=== PATIENT | male | born 1955 | race Asian ===

== ENCOUNTER 2023-04-13 11:08 | Outpatient (REF) | payer OTHER, SELFPAY ==
[2023-04-13 15:23] LABS: Calcium 8.9 mg/dL (8.4-10.2)
== END 2023-04-13 11:09 | disposition home or self-care (01) ==
LOC: HO.CHCLDS 11:08
PROVIDERS: Visit Provider Internal Medicine
DX: E83.51 Hypocalcemia (principal)
CPT/HCPCS: 36415; 82310

== ENCOUNTER 2024-02-23 15:36 | Outpatient (REF) | payer OTHER, SELFPAY ==
[2024-02-23 18:58] LABS: PSA,Total (Free>4and<10) 1.27 ng/mL (0.00-4.00)
[2024-02-23 19:06] LABS: TSH reflex Free T4 0.77 uIU/mL (0.32-4.0); Vitamin D 25-OH Total 13.9 ng/mL (>30)
[2024-02-24 08:54] LABS: HIV AB/AG Nonreactive (Nonreactive); HIV Num 1 0.06 S/CO (0.00-0.99); ~HepC Num1 0.21 S/CO (0.00-0.79); ~Hepatitis C Antibody Nonreactive (Nonreactive)
== END 2024-02-23 15:37 | disposition home or self-care (01) ==
LOC: HO.CHCLDS 15:36
PROVIDERS: Visit Provider Internal Medicine
DX: Z00.00 Encounter for general adult medical examination without abnormal findings (principal); Z12.5 Encounter for screening for malignant neoplasm of prostate; Z11.4 Encounter for screening for human immunodeficiency virus [HIV]; Z12.11 Encounter for screening for malignant neoplasm of colon; R63.4 Abnormal weight loss
CPT/HCPCS: 36415; 82306; 84153; 84443; 86803; 87389

== ENCOUNTER 2024-04-11 11:54 | Outpatient (REF) | payer OTHER, SELFPAY ==
[2024-04-11 15:23] LABS: Folate 10.7 ng/mL (> or = 4.0); Vitamin B12 469 pg/mL (200-900)
== END 2024-04-11 11:55 | disposition home or self-care (01) ==
LOC: HO.CHCLDS 11:54
PROVIDERS: Visit Provider Internal Medicine
DX: R41.3 Other amnesia (principal)
CPT/HCPCS: 36415; 82607; 82746

== ENCOUNTER 2024-06-13 08:01 | Outpatient (REF) | payer OTHER, SELFPAY ==
--- NOTE | 2024-06-13 08:05 | EEG_ITS ---
FINDINGS: Waking background activity consists of a moderate voltage 10 to 12 hertz posterior well-defined alpha frequency intermixed anteriorly with low voltage fast frequencies. Photic stimulation is without activation. Hyperventilation was omitted. Drowsiness was characterized by diffuse theta slowing. No sleep stages are identified. No focal, lateralizing, or paroxysmal discharges are seen. IMPRESSION: This waking EEG is within normal limits. MD NOEL Mccoy/TATIANA / [phone]
== END 2024-06-13 08:02 | disposition home or self-care (01) ==
LOC: HO.NEURO 08:01
PROVIDERS: PCP Internal Medicine; Visit Provider Internal Medicine
DX: R41.3 Other amnesia (principal)
CPT/HCPCS: 95816

== ENCOUNTER 2024-08-11 14:29 | Outpatient (REF) | payer OTHER, SELFPAY ==
[2024-08-11 17:45] LABS: MANUAL DIFF FLAG NO
[2024-08-11 17:58] LABS: Basophils Absolute Auto 0.1 X10*3/uL (0.0-0.2); Basophils Percent Auto 0.8 % (0-2); Eosinophils Absolute Auto 0.2 X10*3/uL (0.0-0.4); Eosinophils Percent Auto 2.5 % (0-4); Hematocrit 45.1 % (42.0-52.0); Imm Gran Abs Auto 0.03 X10*3/uL (0.00-0.03); Imm Gran Pct Auto 0.5 % (0.0-0.4); Lymphocytes Absolute Auto 1.6 X10*3/uL (1.2-4.9); Lymphocytes Percent Auto 26.7 % (20-40); Mean Corpuscular HGB Conc 33.3 g/dl (31.0-36.0); Mean Corpuscular Hemoglobin 29.6 pg (27.0-33.0); Mean Platelet Volume 7.9 fL (9.4-12.4); Monocytes Absolute Auto 0.5 X10*3/uL (0.1-1.2); Monocytes Percent Auto 7.6 % (2-11); Neutrophils Absolute Auto 3.7 x10*3/uL (2.0-8.3); Neutrophils Percent Auto 61.9 % (45-73); Platelet Count 268 X10*3/uL (160-400); Red Blood Count 5.07 X10*6/uL (4.60-5.80); Red Cell Distribution Width 12.1 % (11.0-16.0)
[2024-08-11 18:41] LABS: Folate 13.8 ng/mL (> or = 4.0); Vitamin B12 511 pg/mL (200-900)
[2024-08-11 18:54] LABS: Alanine Aminotransferase 18 U/L (0-40); Albumin Level 4.2 g/dL (3.5-5.0); Alkaline Phosphatase 45 U/L (39-117); Anion Gap 12 (12-20); Aspartate Amino Transferase 24 U/L (5-37); Bilirubin Total 0.5 mg/dL (0.0-1.0); Blood Urea Nitrogen 18 mg/dL (9-16); Calcium 8.6 mg/dL (8.4-10.2); Carbon Dioxide 28 mmol/L (22-29); Chloride 103 mmol/L (96-108); Cholesterol 195 mg/dL (<200); Estimated Glomerular Filt Rate > 60; Glucose Random 95 mg/dL (60-115); HDL Cholesterol 74 mg/dL (>40); LDL Cholesterol Calculated 107 mg/dL (<100); Sodium 139 mmol/L (135-145); Total Protein 7.3 g/dL (6.5-8.0); Triglycerides 71 mg/dL (<150)
[2024-08-11 19:02] LABS: TSH reflex Free T4 0.85 uIU/mL (0.32-4.0)
[2024-08-12 07:52] LABS: Syphilis Screen Nonreactive (Nonreactive)
[2024-08-12 08:26] LABS: HIV AB/AG Nonreactive (Nonreactive); HIV Num 1 0.07 S/CO (0.00-0.99)
[2024-08-12 10:32] LABS: Ceruloplasmin 18 mg/dL (14-30)
[2024-08-12 13:03] LABS: Lyme Abs Screen <0.90 index
== END 2024-08-11 14:30 | disposition home or self-care (01) ==
LOC: HO.CHCLDS 14:29
PROVIDERS: Visit Provider Family Medicine
DX: R25.9 Unspecified abnormal involuntary movements (principal); R41.3 Other amnesia
CPT/HCPCS: 36415; 80053; 80061; 82390; 82607; 82746; 84443; 85025; 86617; 86618; 86780; 87389

== ENCOUNTER 2024-08-18 09:36 | Outpatient (REF) | payer OTHER, SELFPAY ==
[2024-08-18] MEDS: gadobutroL 7.5 ML VIAL IVPUSH (10:45)
== END 2024-08-18 09:37 | disposition home or self-care (01) ==
LOC: HO.MRI 09:36
PROVIDERS: PCP Internal Medicine; Visit Provider Family Medicine
DX: R25.9 Unspecified abnormal involuntary movements (principal)
CPT/HCPCS: 70553; A9585

== ENCOUNTER 2025-05-05 11:30 | Outpatient (REF) | payer MEDICARE, SELFPAY ==
--- OUTSIDE RECORDS SUMMARY | 2025-05-05 11:34 | XMS_ITS | Clinical Summary ---
Author Organization [employer] Address [address] [place] [address] Care Team Providers Care Spring Assembler Name Role Phone Beronica Morales MD Primary Care Provider [phone] Allergies No known active allergies Medications triamcinolone (Kenalog) 0.1 % ointmentIndicatio ns:History of nummular eczema Apply topically 2 times daily. 30 g 3 Active ergocalciferol (Vitamin D2) 1.25 MG (01904 UT) capsuleIndication s:Low vitamin D level Take 1 capsule (1.25 mg) by mouth 1 (one) time per week. 12 capsule 4 Active Nutritional Supplements (Ensure Active High Protein) liquidIndications :Weight loss 1 can 2 times a day. Weight loss. Low BMI. 237 mL 11 4 Active amLODIPine (Norvasc) 5 MG tabletIndications :Primary hypertension Take 1 tablet (5 mg) by mouth Once per day. 90 tablet 3 4 Active Active Problems Problem Noted Date Diagnosed Date Unspecified abnormal involuntary movements 07/14 Assessment & Plan (07/14/2024 11:44 PM EDT): Patient w/o any specific neurological symptoms on gross examination. Persistent symptoms, EEG w/o signs of seizures, will send labs and imaging. Will refer to neurology. Recommended f.up with PCP. Future Appointments Date Time Provider Department Center 08/18/2024 11:15 AM Beronica Morales MD [facility] Hypertensive disorder 12/23/2021 Strain of left biceps 03/11/2018 Resolved Problems Problem Noted Date Diagnosed Date Resolved Date Blood in urine 07/08/2017 07/14/2024 Encounters Date Type Department Care Team Description 04/27/2025 1:15 PM EDT Office Visit [facility] [address] [place] [address] Beronica Morales MD Primary hypertension (Primary Dx); Annual physical exam; LOC (loss of consciousness) (CMS/HCC); Abnormal EKG 04/27/2025 Travel 04/26/2025 Telephone [facility] [address] [place] [address] Beronica Morales MD Chart Prep from Last 3 Months Immunizations Immunization Administration Dates Next Due Pfizer Covid-19 Vaccine 12+ 02/23/2024 Pneumococcal Conjugate PCV 20 02/23/2024 Tdap 12/24/2015 Family History Medical History Relation Name Comments Diabetes Father Hypertension Father Diabetes Mother Relation Name Status Comments Father Mother Social History Tobacco Use Types Packs/Day Years Used Date Smoking Tobacco: Never Passive Smoke Exposure: Never Smokeless Tobacco: Never Tobacco Cessation:Counseling Given: Not Answered Depression Answer Date Recorded Patient Health Questionnaire-9 Score 0 04/27/2025 Patient Health Questionnaire-9 Score 0 04/27/2025 Last PHQ-9: Questionnaire Data Not on file 0 04/27/2025 Housing Stability Answer Date Recorded What is your housing situation today? I have josie leiva 04/27/[address] you li ve. Do you have problems with any of the following? None of the above 04/27/2025 Food Insecurity Answer Date Recorded Within the past 12 months, y ou worried that your food would run out before you got money to buy more: Never True 04/27/2025 Within the past 12 months,th e food you bought just didn't last and you didn't have enough money to get more: Never True Transportation Answer Date Recorded In the past 12 months, has l ack of transportation kept you from medical appts, meetings, work or from getting things needed for daily living? No 04/27/2025 Utilities Answer Date Recorded In the past 12 months, has t he electric, gas, oil or water company threatened to shut off services in your home? No 04/27/2025 Depression Answer Date Recorded Patient Health Questionnaire-2 Score 0 04/27/2025 Internet Access Answer Date Recorded Internet Access Q1 Yes 04/27/2025 Internet Access Q2 Not on file 04/27/2025 Sex and Gender Information Value Date Recorded Sex Assigned at Male 07/28/2022 10:21 AM EDT Legal Sex Male 10:21 AM EDT Gender Identity Male 07/28/2022 10:21 AM EDT Sexual Orientation Straight 07/28/2022 10 :21 AM EDT Last Filed Vital Signs Vital Sign Reading Time Taken Comments Blood Pressure 123/74 04/27/2025 1:49 PM EDT Pulse 102 04/27/2025 1:49 PM EDT Temperature 36.6 C (97.8 F) 04/27/2025 1:49 PM EDT Respiratory Rate 20 04/27/2025 1:49 PM EDT Oxygen Saturation 97% 04/27/2025 1:49 PM EDT Inhaled Oxygen Concentration - - Weight 54.9 kg (121 lb) 04/27/2025 1:49 PM EDT Height 162.6 cm (5' 4 ) 04/27/2025 1:49 PM EDT Body Mass Index 20.77 04/27/2025 1:49 PM EDT Plan of Treatment Health Maintenance Due Date Last Done Comments CT Colonography 1957 Colonoscopy 1957 FIT 1957 FOBT 1957 Sigmoidoscopy 1957 Zoster Vaccines (1 of 2) 2007 COVID-19 Vaccine (2 - 2023-2 5 season) 2024 02/23/2024 Influenza Vaccine (#1) 2025 DTaP/Tdap/Td Vaccines (2 - T d or Tdap) 12/23/2025 12/24/2015 Alcohol/Substance Use Screening 04/27/2026 04/27/2025 Depression Screening 04/27/2026 04/27/2025, 04/27/2025 SDOH Screening 04/27/2026 04/27/2025 Tobacco Screening 04/27/2026 04/27/2025 Colorectal Cancer Screening 03/15/2027 FIT DNA/Cologuard 03/15/2027 03/15/2024 Lipid Panel 08/11/2029 08/11/2024, 12/31/2022, 09/30/2021 RSV Patients and Patients Aged 60 years or older (1 - 1-dose 75+ series) 2032 Hepatitis C Screening Completed 02/23/2024 Pneumococcal Vaccine: 50+ Years Completed 02/23/2024 HIB Vaccines Aged Out No longer eligi ble based on patient's age to complete this topic HPV Vaccines Aged Out No longer eligi ble based on patient's age to complete this topic Hepatitis A Vaccines Aged Out No long er eligible based on patient's age to complete this topic Hepatitis B Vaccines Aged Out No long er eligible based on patient's age to complete this topic IPV Vaccines Aged Out No longer eligi ble based on patient's age to complete this topic Meningococcal B Vaccine Aged Out No l onger eligible based on patient's age to complete this topic Meningococcal Vaccine Aged Out No chelsi brady eligible based on patient's age to complete this topic RSV under 20 months Aged Out No longe r eligible based on patient's age to complete this topic Rotavirus Vaccines Aged Out No longer eligible based on patient's age to complete this topic Procedures Procedure Name Priority Date/Time Associated Diagnosis Comments ECG 12-LEAD Routine 04/27/2025 3:06 PM EDT LOC (loss of consciousness) (CMS/HCC) LIPID PANEL, STANDARD Routine 08/11/2024 2:31 PM EST Unspecified abnormal involuntary movements LAB COLOGUARD COLON CANCER SCREEN Routine 03/15/2024 11:20 AM EDT Screening for colon cancer HEPATITIS C AB W/REFL TO HCV RNA, QN, PCR Routine 02/23/2024 3:37 PM EDT Annual physical exam Weight loss from Last 3 Months or Most Recently Relevant to Health Maintenance Results * ECG 12 lead (04/27/2025 3:06 PM EDT) Beronica Willard MD - 04/27/2025 3:06 PM EDT Heart rate 82 bpm. [place] -107. 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 No sign of left atrial enlargement or right atrial enlargement. No sign of hypertrophy. No ST elevation or ST depression. us Beronica Morales MD ECG ORDERABLES Final Resul t * (ABNORMAL) Lipid Panel, Standard (08/11/2024 2:31 PM EST) Triglycerides 71 <150 mg/dL [facility] Comment:Desirable Triglyceri de: less than 150 mg/dLBorderline High Triglyceride 150-199 mg/dLHigh Triglyceride: 200-499 mg/dLVery High Triglyceride: greater than or equal to 5OO mg/dL Cholesterol 195 <200 mg/dL [facility] Comment:Desirable Cholestero l: less than 200 mg/dLBorderline High Cholesterol: 200-239 mg/dLHigh Cholesterol: greater than 239 mg/dL LDL Cholesterol Calculated 107(H) <100 mg/dL [facility] Comment:Desirable LDL: less than 100 mg/dLNear Optimal/Above Optimal LDL: 110- 129 mg/dLBorderline High LDL: 130-159 mg/dLHigh LDL: 160-189 mg/dLVery High LDL: greater than or equal to 190 mg/dL HDL Cholesterol 74 >40 mg/dL [facility] Comment:Desirable HDL: great er than 40 mg/dL Note: This HDL assay may give artificially low results in patients with liver disease. Blood Venous blood specimen / Unknown 08/11/2024 2:31 PM EST 08/11/2024 5:37 PM EST us Ana Figueroa MD LAB BLOOD ORDERABLES Final Re sult [facility] [address] [place] [phone] * Cologuard?? colon cancer screening (03/15/2024 11:20 AM EDT) Cologuard Result Negative Negative 03/23/20 6:47 PM EDT [employer] (CLIA #:[id number]) Comment: NEGATIVE TEST RESULT. A negative Cologuard result indicates a low likelihood that a colorectal cancer (CRC) or advanced adenoma (adenomatous polyps with more advanced pre-malignant features) is present. The chance that a person with a negative Cologuard test has a colorectal cancer is less than 1 in 1500 (negative predictive value >99.9%) or has an advanced adenoma is less than 5.3% (negative predictive value 94.7%). These data are based on a prospective cross-sectional study of 10,000 individuals at average risk for colorectal cancer who were screened with both Cologuard and colonoscopy. (Che Rico et al, N Engl J Med 2014;370(14):8555-3037) The normal value (reference range) for this assay is negative. COLOGUARD RE-SCREENING RECOMMENDATION: Periodic colorectal cancer screening is an important part of preventive healthcare for asymptomatic individuals at average risk for colorectal cancer. Following a negative Cologuard result, the [place] [employer] Society and U.S. Multi-Society Task Force screening guidelines recommend a Cologuard re-screening interval of 3 years. References: [place] [employer] Guideline for Colorectal Cancer Screening: https://www.cancer.org/cancer/xaqlv-qmroxs-hohfkr/jriujvvlr-hhjjjmrzc-kwyuceb/ac s-rec ommendations.html.; Sukhdev DK, Severino HANCOCK, Stephanie MartK, Colorectal Cancer Screening: Recommendations for Physicians and Patients from the U.S. Multi-Society Task Force on Colorectal Cancer Screening , Am J Gastroenterology 2017; 112:8262-7266. TEST DESCRIPTION: Composite algorithmic analysis of stool DNA-biomarkers with hemoglobin immunoassay. Quantitative values of individual biomarkers are not reportable and are not associated with individual biomarker result reference ranges. Cologuard is intended for colorectal cancer screening of adults of either sex, 45 years or older, who are at average-risk for colorectal cancer (CRC). Cologuard has been approved for use by the U.S. FDA. The performance of Cologuard was established in a cross sectional study of average-risk adults aged 50-84. Cologuard performance in patients ages 45 to 49 years was estimated by sub-group analysis of near-age groups. Colonoscopies performed for a positive result may find as the most clinically significant lesion: colorectal cancer [4.0%], advanced adenoma (including sessile serrated polyps greater than or equal to 1cm diameter) [20%] or non- advanced adenoma [31%]; or no colorectal neoplasia [45%]. These estimates are derived from a prospective cross-sectional screening study of 10,000 individuals at average risk for colorectal cancer who were screened with both Cologuard and colonoscopy. (Che Soler al, N Engl J Med 2014;370(14):7670-5793.) Cologuard may produce a false negative or false positive result (no colorectal cancer or precancerous polyp present at colonoscopy follow up). A negative Cologuard test result does not guarantee the absence of CRC or advanced adenoma (pre-cancer). The current Cologuard screening interval is every 3 years. ([place] [employer] and U.S. Multi-Society Task Force). Cologuard performance data in a 10,000 patient pivotal study using colonoscopy as the reference method can be accessed at the following location: www.[employer])/results. Additional description of the Cologuard test process, warnings and precautions can be found at www.[employer]. Stool specimen (specimen) Rectal contents / Unknown 03/15/2024 11:20 AM EDT 03/17/2024 10:46 AM EDT us Beronica Morales MD LAB MOLECULAR DIAGNOSTICS O RDERABLES Final Result [employer] (CLIA #:[id number]) [place] [address], * Hepatitis C Antibody with Reflex to HCV, RNA, Quantitative, Real-Time PCR (02/23/2024 3:37 PM EDT) Hepatitis C Antibody Nonreactive Nonreactive [facility] Comment:Antibodies to HCV no t detected; does not exclude early acuteHCV infection. Blood Venous blood specimen / Unknown 02/23/2024 3:37 PM EDT 02/23/2024 5:59 PM EDT Beronica Morales MD LAB BLOOD ORDERABLES Final Result [facility] [address] [place] [address] [phone] from Last 3 Months or Most Recently Relevant to Health Maintenance Insurance [facility] MEDICARE [employer] Care Teams Spring Assembler Relationship Specialty Start Date End Date Beronica Morales MD [address] [place] [address] PRISCILA Maria [phone] PCP - General Internal Medicine 09/28/18
--- OUTSIDE RECORDS SUMMARY | 2025-05-05 11:34 | XMS_ITS | Clinical Summary ---
Author Organization [facility] Address [address] [place] [address] Phone Care Team Providers Care Brick Extruder Operator Name Role Phone Physician, Pcp Unknown Primary Care Provider Amanda vailable Social History Tobacco Use Types Packs/Day Years Used Date Smoking Tobacco: Never Assessed Sex and Gender Information Value Date Recorded Sex Assigned at Male 12/19/2024 6:07 AM EDT Legal Sex Male 1:56 PM EST Gender Identity Male 12/19/2024 6:07 AM EDT Sexual Orientation Straight 12/19/2024 6: 07 AM EDT Plan of Treatment Health Maintenance Due Date Last Done Comments Zoster Vaccines (1 of 2) 2007 COVID-19 Vaccine (2 - 2023-2 5 season) 2024 02/23/2024 Depression Screening 09/28/2024 Falls Risk Assessment 10/04/2024 Medicare Annual Wellness Visit 10/04/2024 Social Influencers of Health Screening 10/04/2024 Hypertension/CHF/CAD Annual BMP Blood Test 12/21/2024 Influenza Vaccine (#1) 2025 DTaP,Tdap,and Td Vaccines (2 - Td or Tdap) 12/23/2025 12/24/2015 Colorectal Cancer Screening: FIT-DNA (Cologuard) 03/15/2027 03/15/2024 Cholesterol Screening (Lipid Panel) 08/11/2029 08/11/2024 RSV Immunization Adult Patie nts (1 - 1-dose 75+ series) 2032 Hepatitis C Screening Completed 02/23/2024 Pneumococcal Vaccine: 50+ Years Completed HIB Vaccines Aged Out No longer eligi [...] on patient's age to complete this topic MMR Vaccines Aged Out No longer eligi ble based on patient's age to complete this topic Meningococcal ACWY Vaccine Aged Out N o longer eligible based on patient's age to complete this topic Meningococcal B Vaccine Aged Out No l onger eligible based on patient's age to complete this topic RSV Immunization Patients Un colt 20 months Aged Out No longer eligible b ased on patient's age to complete this topic Varicella Vaccines Aged Out No longer eligible based on patient's age to complete this topic Insurance MEDICAID - [place] [employer] MEDICARE Care Teams Brick Extruder Operator Relationship Specialty Start Date End Date Physician, Pcp Unknown PCP - General 12/19/24
[2025-05-05 15:00] LABS: MANUAL DIFF FLAG NO
[2025-05-05 15:09] LABS: Hematocrit 44.1 % (42.0-52.0); Hemoglobin 15.1 g/dl (14.0-18.0); Imm Gran Abs Auto 0.01 X10*3/uL (0.00-0.03); Imm Gran Pct Auto 0.2 % (0.0-0.4); Lymphocytes Absolute Auto 1.5 X10*3/uL (1.2-4.9); Mean Corpuscular HGB Conc 34.2 g/dl (31.0-36.0); Mean Corpuscular Hemoglobin 30.0 pg (27.0-33.0); Mean Corpuscular Volume 87.5 fL (80.0-98.0); NRBC Abs Auto 0.000 X10*3/uL (0.0-0.012); NRBC Pct Auto 0.0 /100WBC (0.0-0.2); Platelet Count 276 X10*3/uL (160-400); Red Blood Count 5.04 X10*6/uL (4.60-5.80); White Blood Count 5.5 X10*3/uL (4.8-10.8)
[2025-05-05 15:54] LABS: Alanine Aminotransferase 21 U/L (0-40); Albumin Level 4.5 g/dL (3.5-5.0); Alkaline Phosphatase 52 U/L (39-117); Anion Gap 12 (12-20); Aspartate Amino Transferase 25 U/L (5-37); Blood Urea Nitrogen 14 mg/dL (9-16); Calcium 8.8 mg/dL (8.4-10.2); Carbon Dioxide 29 mmol/L (22-29); Chloride 104 mmol/L (96-108); Cholesterol 182 mg/dL (<200); Estimated Glomerular Filt Rate > 60; HDL Cholesterol 59 mg/dL (>40); Potassium 3.7 mmol/L (3.3-5.1); Sodium 141 mmol/L (135-145); Total Protein 7.3 g/dL (6.5-8.0); Triglycerides 79 mg/dL (<150)
[2025-05-05 16:02] LABS: PSA,Total (Free>4and<10) 1.15 ng/mL (0.00-4.00)
== END 2025-05-05 11:31 | disposition home or self-care (01) ==
LOC: HO.CHCLDS 11:30
PROVIDERS: Visit Provider Internal Medicine
DX: Z00.00 Encounter for general adult medical examination without abnormal findings (principal); Z12.5 Encounter for screening for malignant neoplasm of prostate; I10 Essential (primary) hypertension
CPT/HCPCS: 36415; 80053; 80061; 84153; 84443; 85025

== ENCOUNTER → 2025-05-16 13:09 | Outpatient (REF) | payer MEDICARE, SELFPAY ==
--- NOTE | 2025-05-16 13:13 | HM_ITS ---
* Total monitoring time 2 days. * Underlying rhythm is sinus with an average rate of 77/Min. * Rare supraventricular ectopy. * Rare ventricular ectopy. * No significant pauses or high-grade AV blocks. * No patient markers or diary events. MTDD
--- OUTSIDE RECORDS SUMMARY | 2025-05-16 14:19 | XMS_ITS | Clinical Summary ---
Author Organization [employer] Address [address] [place] [address] Care Team Providers Care Wet Cotton Feeder Name Role Phone Beronica Morales MD Primary Care Provider Allergies No known active allergies Medications triamcinolone (Kenalog) 0.1 % ointmentIndicatio ns:History of nummular eczema Apply topically 2 times daily. 30 g 3 Active ergocalciferol (Vitamin D2) 1.25 MG (78371 UT) capsuleIndication s:Low vitamin D level Take [...] Center 08/18/2024 11:15 AM Beronica Morales MD [facility] Hypertensive disorder 12/23/2021 Strain of left biceps 03/11/2018 Resolved Problems Problem Noted Date Diagnosed Date Resolved Date Blood in urine 07/08/2017 07/14/2024 Encounters Date Type Department Care Team Description 05/08/2025 Results Follow-Up [facility] [address] [place] [address] Beronica Morales MD CBC auto differential, Comprehensive Metabolic Panel, Lipid Panel, Standard, Additional followed-up results: 2 04/27/2025 1:15 PM EDT Office Visit [facility] [address] [place] [address] Beronica Morales MD Primary hypertension (Primary Dx); Annual physical exam; LOC (loss of consciousness) (CMS/HCC); Abnormal EKG 04/27/2025 Travel 04/26/2025 Telephone [facility] [address] [place] [address] Beronica Morales MD Chart Prep from Last [...] of 2) 2007 COVID-19 Vaccine (2 - season) 2024 02/23/2024 Influenza Vaccine (#1) 2025 DTaP/Tdap/Td Vaccines (2 - Td or Tdap) 12/23/2025 12/24/2015 Alcohol/Substance Use Screening 04/27/2026 04/27/2025 Depression Screening 04/27/2026 04/27/2025, 04/27/20 SDOH Screening 04/27/2026 04/27/2025 Tobacco Screening 04/27/2026 04/27/2025 Colorectal Cancer Screening 03/15/2027 FIT DNA/Cologuard 03/15/2027 03/15/2024 Lipid Panel 05/05/2030 05/05/2025, 07/29, 12/31/2022, Additional history exists RSV Patients and Patients Aged 60 years [...] Procedure Name Priority Date/Time Associated Diagnosis Comments PSA, TOTAL WITH REFLEX TO PSA, FREE Routine 05/05/2025 11:32 AM EDT Annual physical exam TSH W/REFLEX TO FT4 Routine 05/05/2025 1 1:32 AM EDT Primary hypertension Annual physical exam LIPID PANEL, STANDARD Routine 05/05/2025 11:32 AM EDT Primary hypertension Annual physical exam COMPREHENSIVE METABOLIC PANEL Routine 05/05/2025 11:32 AM EDT Primary hypertension Annual physical exam CBC WITH AUTO DIFFERENTIAL Routine 05/05/2025 11:32 AM EDT Primary hypertension Annual physical exam ECG 12-LEAD Routine 04/27/2025 3:06 PM EDT LOC (loss of consciousness) (CMS/HCC) LAB COLOGUARD COLON CANCER SCREEN Routine 03/15/2024 11:20 AM EDT Screening for colon cancer HEPATITIS C AB W/REFL TO HCV RNA, QN, PCR Routine 02/23/2024 3:37 PM EDT Annual physical exam Weight loss from Last 3 Months or Most Recently Relevant to Health Maintenance Results * TSH with Reflex to Free T4 (05/05/2025 11:32 AM EDT) TSH reflex Free T4 0.94 0.32 - 4.0 uIU/mL [facility] Blood Venous blood specimen / Unknown 05/05/2025 11:32 AM EDT 05/05/2025 2:34 PM EDT us Beronica Morales MD LAB BLOOD ORDERABLES Final Result [facility] [address] [place] [address] [phone] * PSA, Total With Reflex to PSA, Free (05/05/2025 11:32 AM EDT) PSA,Total (Free>4and<10) 1.15 0.00 - 4.00 ng/mL [facility] Comment:A Free PSA was not p erformed: The percentage of Free PSA can be used to enhance the differentiation of prostate cancer from benign prostatic disease in subjects whose PSA levels are between 4.0 and 10.0 ng/mL. For subjects whose PSA levels are below 4.0 or above 10.0 ng/mL, the risk of prostate cancer is determined on the basis of the PSA alone. Therefore the % Free PSA is recommended only for those subjects whose PSA levels are between 4.0 and 10.0 ng/mL.PSA methodology: ED01nity i ChemiluminescentMicroparticle Immunoassay (CMIA) 05/05/2025 11:3 2 AM EDT 05/05/2025 2:34 PM EDT us Beronica Morales MD LAB BLOOD ORDERABLES Final Result [facility] [address] [place] [address] [phone] * (ABNORMAL) CBC auto differential (05/05/2025 11:32 AM EDT) White Blood Count 5.5 4.8 - 10.8 X10*3/uL [facility] Red Blood Count 5.04 4.60 - 5.80 X10*6/uL [facility] Hemoglobin 15.1 14.0 - 18.0 g/dl [facility] Hematocrit 44.1 42.0 - 52.0 % [facility] Mean Corpuscular Volume 87.5 80.0 - 98.0 fL [facility] Mean Corpuscular Hemoglobin 30.0 27.0 - 33.0 pg [facility] Mean Corpuscular HGB Conc 34.2 31.0 - 36.0 g/dl [facility] Red Cell Distribution Width 12.1 11.0 - 16.0 % [facility] Platelet Count 276 160 - 400 X10*3/uL [facility] Mean Platelet Volume 8.0(L) 9.4 - 12.4 fL [facility] Neutrophils Percent Auto 60.5 45 - 73 % [facility] Imm Gran Pct Auto 0.2 0.0 - 0.4 % [facility] Lymphocytes Percent Auto 27.0 20 - 40 % [facility] Monocytes Percent Auto 8.7 2 - 11 % [facility] Eosinophils Percent Auto 2.5 0 - 4 % [facility] Basophils Percent Auto 1.1 0 - 2 % [facility] NRBC Pct Auto 0.0 0.0 - 0.2 /100WBC [facility] Neutrophils Absolute Auto 3.3 2.0 - 8.3 x10*3/uL [facility] Imm Gran Abs Auto 0.01 0.00 - 0.03 X10*3/uL [facility] Lymphocytes Absolute Auto 1.5 1.2 - 4.9 X10*3/uL [facility] Monocytes Absolute Auto 0.5 0.1 - 1.2 X10*3/uL [facility] Eosinophils Absolute Auto 0.1 0.0 - 0.4 X10*3/uL [facility] Basophils Absolute Auto 0.1 0.0 - 0.2 X10*3/uL [facility] NRBC Abs Auto 0.000 0.0 - 0.012 X10*3/uL [facility] Blood Venous blood specimen / Unknown 05/05/2025 11:32 AM EDT 05/05/2025 2:55 PM EDT us Beronica Morales MD LAB BLOOD ORDERABLES Final Result [facility] [address] [place] [phone] * (ABNORMAL) Lipid Panel, Standard (05/05/2025 11:32 AM EDT) Triglycerides 79 <150 mg/dL [facility] Comment:Desirable Triglyceri de: less than 150 mg/dLBorderline High Triglyceride 150-199 mg/dLHigh Triglyceride: 200-499 mg/dLVery High Triglyceride: greater than or equal to 5OO mg/dL Cholesterol 182 <200 mg/dL [facility] Comment:Desirable Cholestero l: less than 200 mg/dLBorderline High Cholesterol: 200-239 mg/dLHigh Cholesterol: greater than 239 mg/dL LDL Cholesterol Calculated 108(H) <100 mg/dL [facility] Comment:Desirable LDL: less than 100 mg/dLNear Optimal/Above Optimal LDL: 110- 129 mg/dLBorderline High LDL: 130-159 mg/dLHigh LDL: 160-189 mg/dLVery High LDL: greater than or equal to 190 mg/dL HDL Cholesterol 59 >40 mg/dL [facility] Comment:Desirable HDL: great er than 40 mg/dL Note: This HDL assay may give artificially low results in patients with liver disease. Blood Venous blood specimen / Unknown 05/05/2025 11:32 AM EDT 05/05/2025 2:34 PM EDT us Beronica Morales MD LAB BLOOD ORDERABLES Final Result [facility] [address] [place] [phone] * Comprehensive Metabolic Panel (05/05/2025 11:32 AM EDT) Sodium 141 135 - 145 mmol/L [facility] Potassium 3.7 3.3 - 5.1 mmol/L [facility] Chloride 104 96 - 108 mmol/L [facility] Carbon Dioxide 29 22 - 29 mmol/L [facility] Anion Gap 12 12 - 20 [facility] Urea Nitrogen (BUN) 14 9 - 16 mg/dL [facility] Creatinine, Serum 0.92 0.5 - 1.4 mg/dL [facility] Estimated Glomerular Filt Rate >60 [facility] Comment:Chronic Kidney Disea se: Estimated GFR < 60 mL/min/1.97n0Bvpanb Kidney Disease: Estimated GFR < 15 mL/min/1.73m2 Glucose 96 60 - 115 mg/dL [facility] Calcium 8.8 8.4 - 10.2 mg/dL [facility] Bilirubin, Total 0.8 0.0 - 1.0 mg/dL [facility] Aspartate Amino Transferase 25 5 - 37 U/L [facility] Alanine Aminotransferase 21 0 - 40 U/L [facility] Total Protein 7.3 6.5 - 8.0 g/dL [facility] Albumin Level 4.5 3.5 - 5.0 g/dL [facility] Alkaline Phosphatase 52 39 - 117 U/L [facility] Blood Venous blood specimen / Unknown 05/05/2025 11:32 AM EDT 05/05/2025 2:34 PM EDT us Beronica Morales MD LAB BLOOD ORDERABLES Final Result [facility] [address] [place] [address] [phone] * ECG 12 lead (04/27/2025 3:06 PM EDT) Narrative Beronica Morales MD - 04/27/2025 3:06 PM EDT Heart rate 82 bpm. [place] -107. 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 No sign of left atrial enlargement or right atrial enlargement. No sign of hypertrophy. No ST elevation or ST depression. us Beronica Morales MD ECG ORDERABLES Final Resul t * Cologuard?? colon cancer screening (03/15/2024 11:20 AM EDT) Cologuard Result Negative Negative 03/23/20 6:47 PM EDT [facility] (CLIA #:[id number]) Comment: NEGATIVE TEST RESULT. A negative Cologuard [...] (Che Soler al, N Engl J Med 2014;370(14):7872-8156) The normal value (reference range) for this assay is negative. COLOGUARD RE-SCREENING RECOMMENDATION: Periodic colorectal cancer screening is an important part of preventive healthcare for asymptomatic individuals at average risk for colorectal cancer. Following a negative Cologuard result, the [place] Cancer Society and U.S. Multi-Society Task Force screening guidelines recommend a Cologuard re-screening interval of 3 years. References: [place] [employer] Society Guideline for Colorectal Cancer Screening: https://www.cancer.org/cancer/iwjtk-qqtmqq-ifrjkr/xhvcjtgyl-bobequpzj-qkftsym/ac s-rec ommendations.html.; Sukhdev DK, Severino HANCOCK, Stephanie MartK, Colorectal Cancer Screening: Recommendations for Physicians and Patients from the U.S. Multi-Society Task Force on Colorectal Cancer Screening , Am J Gastroenterology 2017; 112:9482-5388. TEST DESCRIPTION: Composite algorithmic analysis of stool [...] Rico et al, N Engl J Med 2014;370(14):4548-9659.) Cologuard may produce a false negative or false positive result (no colorectal cancer or precancerous polyp present at colonoscopy follow up). A negative Cologuard test result does not guarantee the absence of CRC or advanced adenoma (pre-cancer). The current Cologuard screening interval is every 3 years. ([place] Cancer Society and U.S. Multi-Society Task Force). Cologuard performance data in a 10,000 patient pivotal study using colonoscopy as the reference method can be accessed at the following location: www.[facility].[employer]/results. Additional description of the Cologuard test process, warnings and precautions can be found at www.[employer]. Stool specimen (specimen) Rectal contents / Unknown 03/15/2024 11:20 AM EDT 03/17/2024 10:46 AM EDT us Beronica Morales MD LAB MOLECULAR DIAGNOSTICS O RDERABLES Final Result [facility] (CLIA #:[id number]) [place] [address], * Hepatitis C Antibody with Reflex to HCV, RNA, Quantitative, Real-Time PCR (02/23/2024 3:37 PM EDT) Hepatitis C Antibody Nonreactive Nonreactive [facility] Comment:Antibodies to HCV no t detected; does not exclude early acuteHCV infection. Blood Venous blood specimen / Unknown 02/23/2024 3:37 PM EDT 02/23/2024 5:59 PM EDT us Beronica Morales MD LAB BLOOD ORDERABLES Final Result Performing Organization Address City/[facility]/ZIP Co de Phone Number [facility] [address] [place] [address] [phone] from Last 3 Months or Most Recently Relevant to Health Maintenance Insurance [id number] MEDICARE ADVANTAGE [employer] [address] Care Teams Wet Cotton Feeder Relationship Specialty Start Date End Date Beronica Morales MD [address] [facility] [place] [id number] PCP - General Internal Medicine 09/28/18
--- OUTSIDE RECORDS SUMMARY | 2025-05-16 14:19 | XMS_ITS | Clinical Summary ---
Author Organization [facility] Address [address] [place] [address] Phone Care Team Providers Care Transportation Design Engineer Name Role Phone Physician, Pcp Unknown Primary [...] - [place] [employer] MEDICARE Care Teams Transportation Design Engineer Relationship Specialty Start Date End Date Physician, Pcp Unknown PCP - General 12/19/24
--- OUTSIDE RECORDS SUMMARY | 2025-05-16 14:19 | XMS_ITS | Clinical Summary ---
Author Organization [facility] Address [address] [address] Phone Care Team Providers Care Fireworks Inspector Name Role Phone Beronica Morales MD Primary Care Pr ovider Allergies No known active allergies Medications No known medications Active Problems No known active problems Social History Tobacco Use Types Packs/Day Years Used Date Smoking Tobacco: Never Smokeless Tobacco: Never Education Answer Date Recorded Are you interested in more education? Not on zee e 01/24/2023 Are you concerned about learning? Not on file 01/24/2023 No 01/24/2023 No 01/24/2023 Digital Access Answer Date Recorded No 02/22/2023 No 02/22/2023 No 02/22/2023 Reliable internet access at home? Not on file 02/22/2023 Device with a working camera? Not on file Comments Unknown Sex and Gender Information Value Date Recorded Sex Assigned at Not on file Legal Sex Female 10:43 AM EST Gender Identity Not on file Sexual Orientation Not on file Last Filed Vital Signs Vital Sign Reading Time Taken Comments Blood Pressure 107/67 09/07/2021 11:34 AM EST Pulse 91 09/07/2021 11:34 AM EST Temperature 36.5 C (97.7 F) 09/07/2021 11:34 AM EST Respiratory Rate 24 09/07/2021 11:34 AM EST Oxygen Saturation 94% 09/07/2021 11:34 AM EST Inhaled Oxygen Concentration - - Weight 61.2 kg (135 lb) 09/07/2021 11:34 AM EST Height 167.6 cm (5' 6 ) 09/07/2021 11:34 AM EST Body Mass Index 21.79 09/07/2021 11:34 AM EST Plan of Treatment Health Maintenance Due Date Last Done Comments Adult Td,Tdap Booster 1957 LIPID PANEL 1957 DEPRESSION SCREENING 1969 HEPATITIS C SCREENING 1975 MAMMOGRAM 1997 COLOGUARD 2002 COLONOSCOPY 2002 COLORECTAL CANCER SCREENING 2002 FIT TEST 2002 FOBT 2002 SIGMOIDOSCOPY 2002 VIRTUAL COLONOSCOPY 2002 PNEUMOCOCCAL VACCINES (50+ y ears) (1 of 1 - PCV) 2007 ZOSTER VACCINES (1 of 2) 2007 OSTEOPOROSIS SCREENING INITI AL (ONE-TIME) 2022 COVID-19 VACCINE ( - 2023-2 5 season) 2024 RSV VACCINE (1 - 1-dose 75+ series) 2032 SMOKING STATUS SCREENING (On ce After 26 Yrs) Completed 09/07/2021 HEPATITIS A VACCINES Aged Out No long er eligible based on patient's age to complete this topic HIB VACCINES Aged Out No longer eligi ble based on patient's age to complete this topic MENINGOCOCCAL VACCINES (ACWY) Aged Out No longer eligible based on patient's age to complete this topic MENINGOCOCCAL VACCINES (B) Aged Out N o longer eligible based on patient's age to complete this topic Medical [place] [id number] [facility] [employer] , [place] [id number] [facility] [place] [address] [address] [place] [address] [employer] [facility] [employer] [facility] [employer] [facility] [employer] [facility] [employer] Care Teams Fireworks Inspector Relationship Specialty Start Date End Date Beronica Morales MD PCP - General Internal Medicine 09/07/21 Additional Source Comments The information contained in this document represents components of the legal health record. It is not the complete legal health record.[facility]
== END ==
LOC: HO.CARD 13:09
PROVIDERS: PCP Internal Medicine; Visit Provider Internal Medicine
DX: R40.20 Unspecified coma (principal); R40.4 Transient alteration of awareness
CPT/HCPCS: 93225

== ENCOUNTER → 2025-05-16 13:13 | Outpatient (BNV) | payer MEDICARE, SELFPAY | PROVIDERS: PCP Internal Medicine; Visit Provider Internal Medicine | DX: I47.10 Supraventricular tachycardia, unspecified (principal); I49.3 Ventricular premature depolarization | CPT/HCPCS: 93227 ==

== ENCOUNTER 2025-06-21 08:38 | Outpatient (AMB) | payer MEDICARE, OTHER, SELFPAY ==
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
--- OUTSIDE RECORDS SUMMARY | 2025-06-21 09:42 | XMS_ITS | Clinical Summary ---
Author Organization [facility] Address [address] [address] Phone Care Team Providers Care Home Health Care Worker Name Role Phone Beronica Morales MD Primary [...] 2007 OSTEOPOROSIS SCREENING INITI AL (ONE-TIME) 2022 INFLUENZA VACCINE (#1) 2025 COVID-19 VACCINE (1 - 2023-2 5 season) 2025 RSV VACCINE (1 - 1-dose 75+ series) [...] topic Medical Devices Not on file Insurance , [facility] PRISCILA HERNANDEZ [id number] [facility] [employer]3 ACO PRISCILA HERNANDEZ [id number] [facility] [address] [place] [address] [place] [address] [facility] [address] [facility] [address] [facility] [address] [facility] C[address] [facility] C3 ACO [facility] C3 ACO Care Teams Home Health Care Worker Relationship Specialty Start Date End Date Beronica Morales MD PCP - General Internal Medicine 09/07/21 Additional Source Comments The information contained in this document represents components of the legal health record. It is not the complete legal health record.[facility]
--- OUTSIDE RECORDS SUMMARY | 2025-06-21 09:42 | XMS_ITS | Encounter Summary ---
Author Organization [employer] Address [address] [place] [address] 7 [place] [address] Care Team Providers Care Application Integration Architect Name Role Phone Beronica Morales MD Primary Care Provider +1- [phone] Encounter Details Date Type Department Care Team (Latest Contact Info) Description 11/26/2020 Abstract [facility] CONVERSIONS Dental, Provider, DDS Social History Tobacco Use Types Packs/Day Years Used Date Smoking Tobacco: Never Assessed Sex and Gender Information Value Date Recorded Sex Assigned at Male 07/28/2022 10:21 AM EDT Legal Sex Male 10:21 AM EDT Gender Identity Male 07/28/2022 10:21 AM EDT Sexual Orientation Straight 07/28/2022 10 :21 AM EDT documented as of this encounter Plan of Treatment Not on file documented as of this encounter Visit Diagnoses Not on filedocumented in this encounter Care Teams Application Integration Architect Relationship Specialty Start Date End Date Beronica Morales MD 505 [facility] [place] [address] PCP - General Internal Medicine 09/28/18 documented as of this encounter
--- OUTSIDE RECORDS SUMMARY | 2025-06-21 09:42 | XMS_ITS | Encounter Summary ---
Author Organization [employer] Address 75 [facility] 7t [place] [address] Care Team Providers Care Youth Leader Name Role Phone Beronica Morales MD Primary Care Provider +1- [phone] Encounter Details Date Type Department Care Team (Latest Contact Info) Description 05/08/2025 Results Follow-Up [facility] CHC MED & PEDS [address] [place], [place] [phone] Beronica Morales MD [address] [place] [address] CBC auto differential, Comprehensive Metabolic Panel, Lipid Panel, Standard, Additional followed-up results: 2 Social History Tobacco Use Types Packs/Day Years Used Date Smoking Tobacco: Never Passive Smoke Exposure: Never Smokeless Tobacco: Never Depression Answer Date Recorded Patient Health Questionnaire-9 [...] Diagnoses Not on filedocumented in this encounter Additional Health Concerns Assessment Noted Time PHQ-9 Depression Total Score: 0 04/27/20 25 2:33 PM EDT documented as of this encounter Care Teams Youth Leader Relationship Specialty Start Date End Date Beronica Morales MD [address] [place] [phone] PCP - General Internal Medicine 09/28/18 documented as of this encounter
--- OUTSIDE RECORDS SUMMARY | 2025-06-21 09:42 | XMS_ITS | Encounter Summary ---
Author Organization [employer] Address [address] [place] [address] 7 [place] [address] Care Team Providers Care Critical Care Registered Nurse Name Role Phone Beronica Morales MD Primary Care Provider +1- [phone] Encounter Details Date Type Department Care Team (Latest Contact Info) Description 02/26/[address] [facility] CONVERSIONS Dental, Provider, DDS Social History Tobacco [...] on filedocumented in this encounter Care Teams Critical Care Registered Nurse Relationship Specialty Start Date End Date Beronica Morales MD 505 [facility] [place] [address] PCP - General Internal Medicine 09/28/18 documented as of this encounter
--- OUTSIDE RECORDS SUMMARY | 2025-06-21 09:42 | XMS_ITS | Encounter Summary ---
Author Organization [employer] Address 75 [facility] 7t [place] [address] Care Team Providers Care Double Spindle Shaper Operator Name Role Phone Beronica Morales MD Primary Care Provider +1- [phone] Encounter Details Date Type Department Care Team ([facility] Contact Info) Description 09/12/[address] [facility] CHC MED & PEDS [address] [place], [place] [phone] Beronica Morales MD [address] [place], [place] [phone] Social History Tobacco Use Types Packs/Day Years Used Date Smoking Tobacco: Never Passive Smoke Exposure: Never Smokeless Tobacco: Never Depression Answer Date Recorded Patient Health Questionnaire-9 Score 0 02/23/2024 Patient Health Questionnaire-9 Score 0 02/23/2024 Last PHQ-9: Questionnaire Data Not on file 0 02/23/2024 Housing Stability Answer Date Recorded What is your housing situation today? I have josie cali 02/12/[address] you li ve. Do you have problems with any of the following? None of the above 02/12/2024 Food Insecurity Answer Date Recorded Within the past 12 months, y ou worried that your food would run out before you got money to buy more: Never True 02/12/2024 Within the past 12 months,th e food you bought just didn't last and you didn't have enough money to get more: Never True Transportation Answer Date Recorded In the past 12 months, has l ack of transportation kept you from medical appts, meetings, work or from getting things needed for daily living? No 02/12/2024 Utilities Answer Date Recorded In the past 12 months, has t he electric, gas, oil or water company threatened to shut off services in your home? No 02/12/2024 Depression Answer Date Recorded Patient Health Questionnaire-2 Score 0 02/23/2024 Sex and Gender Information Value Date Recorded [...] Noted Time PHQ-9 Depression Total Score: 0 02/23/20 24 3:53 PM EDT documented as of this encounter Care Teams Double Spindle Shaper Operator Relationship Specialty Start Date End Date Beronica Morales MD [address] [place] [phone] PCP - General Internal Medicine 09/28/18 documented as of this encounter
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
--- OUTSIDE RECORDS SUMMARY | 2025-06-21 09:42 | XMS_ITS | Encounter Summary ---
Author Organization [employer] Address 75 [facility] 7t [place] [address] Care Team Providers Care Toll Line Inspector Name Role Phone Beronica Morales MD Primary Care Provider +1- [phone] Encounter Details Date Type Department Care Team ([facility] st Contact Info) Description 02/23/2024 Orders Only [facility] CHC MED & PEDS [address] [place], [place] [phone] Beronica Morales MD [address] [place], [place] [phone] Low vitamin D level (Primary Dx) Social History Tobacco Use Types Packs/Day Years Used Date Smoking Tobacco: Never Passive Smoke Exposure: Never Smokeless Tobacco: Never Depression Answer Date Recorded Patient Health Questionnaire-9 Score 0 02/23/2024 Patient Health Questionnaire-9 Score 0 02/23/2024 Last PHQ-9: Questionnaire Data Not on file 0 02/23/2024 Housing Stability Answer Date Recorded What is your housing situation today? I have josie leiva 02/12/[address] you li [...] AM EDT documented as of this encounter Functional Status * Over the past 2 weeks, how often have you been bothered by any of the following problems? Question Answer Date of Assessment Author Patient Health Questionnaire-2 Score 0 01/27 3:53 PM [facility] Jammie Woody [place] * Over the past 2 weeks, how often have you been bothered by any of the following problems? Question Answer Date of Assessment Author Little interest or pleasure in doing things Not at all 02/23/2024 3:53 PM Jammie Dee [place] Feeling down, depressed, or hopeless Not at all 02/23/2024 3:53 PM Jammie Dee [place] Trouble falling or staying a sleep, or sleeping too much Not at all 02/23/2024 3:53 PM Jammie Dee [place] Feeling tired or having hardik le energy Not at all 02/23/2024 3:53 PM Jammie Dee [place] Poor appetite or overeating Not at all 02/23/2024 3: 53 PM Jammie Dee MA Feeling bad about yourself - or that you are a failure or have let yourself or your family down Not at all 02/23/2024 3:53 PM Marcella Dee MA Trouble concentrating on thi ngs, such as reading the newspaper or watching television Not at all 02/23/2024 3:53 PM Jammie Dee MA Moving or speaking so slowly that other people could have noticed? Or the opposite - being so fidgety or restless that you have been moving around a lot more than usual. Not at all 02/23/2024 3:53 PM Jammie Dee MA Thoughts that you would be b cm off or hurting yourself in some way Not at all 02/23/2024 3:53 PM EDT Jammie Woody MA Patient Health Questionnaire -9 Score 0 02/23/2024 3:53 PM EDT Jammie Woody [place] documented as of this encounter Plan of Treatment Not on file documented as of this encounter Visit Diagnoses Diagnosis Low vitamin D level- Primary documented in this encounter Additional Health Concerns Assessment Noted Time PHQ-9 Depression Total Score: 0 02/23/20 24 3:53 PM EDT documented as of this encounter Care Teams Toll Line Inspector Relationship Specialty Start Date End Date Beronica Morales MD [address] [place] [phone] PCP - General Internal Medicine 09/28/18 documented as of this encounter
--- OUTSIDE RECORDS SUMMARY | 2025-06-21 09:42 | XMS_ITS | Encounter Summary ---
Author Organization [employer] Address [address] [place] [address] 7 [place] [address] Care Team Providers Care Short Piece Handler Name Role Phone Beronica Morales MD Primary Care Provider +1- [phone] Encounter Details Date Type Department Care Team (Latest Contact Info) Description 10/22/2018 Abstract [facility] CONVERSIONS Dental, Provider, DDS Social History [...] on filedocumented in this encounter Care Teams Short Piece Handler Relationship Specialty Start Date End Date Beronica Morales MD 505 [place] [address] PCP - General Internal Medicine 09/28/18 documented as of this encounter
--- OUTSIDE RECORDS SUMMARY | 2025-06-21 09:42 | XMS_ITS | Clinical Summary ---
Author Organization [facility] Address [address] [place] [address] Phone Care Team Providers Care Digital Forensics Investigator Name Role Phone Physician, Pcp Unknown Primary [...] Comments Zoster Vaccines (1 of 2) 2007 Depression Screening 09/28/2024 Falls Risk Assessment 10/04/2024 Medicare Annual Wellness Visit 10/04/2024 Social Influencers of Health Screening 10/04/2024 Hypertension/CHF/CAD Annual BMP Blood Test 12/21/2024 COVID-19 Vaccine (2 - 2024-2 6 season) 2025 02/23/2024 Influenza Vaccine (#1) 2025 DTaP,Tdap,and Td Vaccines [...] - [place] [employer] MEDICARE Care Teams Digital Forensics Investigator Relationship Specialty Start Date End Date Physician, Pcp Unknown PCP - General 12/19/24
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
== END 2025-06-21 09:00 | disposition home or self-care (01) ==
LOC: HO.HSM 08:39
PROVIDERS: PCP Family Medicine; Visit Provider Psychiatry & Neurology Neurology
DX: G40.209 Localization-related (focal) (partial) symptomatic epilepsy and epileptic syndromes with complex partial seizures, not intractable, without status epilepticus (principal)
CPT/HCPCS: 99214

== ENCOUNTER → 2025-06-21 08:38 | Outpatient (BNVA) | payer MEDICARE, SELFPAY | PROVIDERS: PCP Family Medicine; Visit Provider Psychiatry & Neurology Neurology | DX: G40.209 Localization-related (focal) (partial) symptomatic epilepsy and epileptic syndromes with complex partial seizures, not intractable, without status epilepticus (principal) | CPT/HCPCS: 99212 ==

== ENCOUNTER 2025-07-13 16:49 | Outpatient (REF) | payer MEDICARE, SELFPAY ==
--- NOTE | ~2025-07-13 | XR_ITS ---
CLINICAL HISTORY: left sided chest wall pain --- Additional Notes or Special Instructions: wo Chest Radiographs, 2 views Comparison: None available Findings: No cardiomegaly. Normal mediastinal contours. No pneumothorax. No opacity. No pleural effusion. Normal upper abdomen. No acute fracture. Impression: No acute findings. This document has been electronically signed by: Isabelle Lisa MD on 07/13/2025 17:58:49
--- OUTSIDE RECORDS SUMMARY | 2025-07-13 16:00 | XMS_ITS | Encounter Summary ---
Author Organization [employer] Address [address] [place] [address] Care Team Providers Care Business Department Chair Name Role Phone Beronica Morales MD Primary Care Provider +1- [phone] Encounter Details Date Type Department Care Team ([facility] st Contact Info) Description 07/13/2025 4:00 PM EDT Office Visit [facility] [address] [place] [address] Velma Beaulieu MD [address] [place], [place] [phone] Left-sided chest wall pain (Primary Dx) Social History Tobacco Use Types [...] AM EDT documented as of this encounter Last Filed Vital Signs Vital Sign Reading Time Taken Comments Blood Pressure 143/90 07/13/2025 3:53 PM EDT Pulse 92 07/13/2025 3:53 PM EDT Temperature 36.7 C (98.1 F) 07/13/2025 3:53 PM EDT Respiratory Rate 19 07/13/2025 3:53 PM EDT Oxygen Saturation 96% 07/13/2025 3:53 PM EDT Inhaled Oxygen Concentration - - Weight 54.1 kg (119 lb 6 oz) 07/13/2025 3:53 PM EDT Height 160 cm (5' 3 ) 07/13/2025 3:53 PM EDT Body Mass Index 21.15 07/13/2025 3:53 PM EDT documented in this encounter Progress Notes * Velma Beaulieu MD - 07/13/2025 4:00 PM EDT Images from the original note were not included. SUBJECTIVE Cameron Mays is a 70 y.o. male patient of Beronica Morales MD who presents for left sided rib pain. HPI Cameron is here with his brother, Jarrod, because of one week of left sided anterior chest wall pain.Pain is only present when he moves his left arm or when he lies down. Does not recall any recent falls and denies fever, chills, cough, loss of appetite, weight loss. His brother reports Cameron has some trouble with his memory. Review of Systems Constitutional: Negative for activity change, appetite change, chills, fatigue, fever and unexpected weight change. Respiratory: Negative for cough. Cardiovascular: Positive for chest pain (chest wall). Negative for palpitations. Gastrointestinal: Negative for abdominal pain, nausea and vomiting. Musculoskeletal: Negative for arthralgias and back pain. Neurological: Negative for headaches. OBJECTIVE Vitals: 07/13/25 1553 BP: (!) 143/90 BP Location: Left arm Patient Position: Sitting BP Cuff Size: Adult Pulse: 92 Resp: 19 Temp: 98.1 ??F (36.7 ??C) TempSrc: Oral SpO2: 96% Weight: 119 lb 6 oz (54.1 kg) Height: 5' 3 (1.6 m) Physical Exam Constitutional: Appearance: He is underweight. He is not ill-appearing or diaphoretic. HENT: Head: Normocephalic. Comments: 2 cm long irregular red abrasion upper neck anteriorly Mouth/Throat: Mouth: Mucous membranes are moist. Eyes: General: No scleral icterus. Extraocular Movements: Extraocular movements intact. Conjunctiva/sclera: Conjunctivae normal. Pupils: Pupils are equal, round, and reactive to light. Cardiovascular: Rate and Rhythm: Normal rate and regular rhythm. Pulses: Normal pulses. Heart sounds: Normal heart sounds. No murmur heard. No friction rub. No gallop. Pulmonary: Effort: No tachypnea. Breath sounds: No wheezing, rhonchi or rales. Comments: Pleural rub noted anteroinferior chest wall. No chest wall tenderness. Bruising noted inferior to left scapular. Left scapula noted to rise less than right scapula on inhalation. Chest: Chest wall: No mass or tenderness. There is no dullness to percussion. Musculoskeletal: General: No tenderness (no left shoulder tenderness). Lymphadenopathy: Cervical: No cervical adenopathy. Upper Body: Right upper body: No supraclavicular adenopathy. Left upper body: No supraclavicular adenopathy. Skin: General: Skin is warm and dry. Capillary Refill: Capillary refill takes less than 2 seconds. Comments: Linear well healed laceration about 4 cm long mid clavicular line on right side, surrounded by fading ecchymosis. Neurological: General: No focal deficit present. Mental Status: He is alert. Psychiatric: Attention and Perception: Attention normal. Mood and Affect: Mood normal. Behavior: Behavior normal. Comments: Alert and oriented x 3 Assessment/Plan Assessment/Plan Diagnoses and all orders for this visit: Left-sided chest wall pain: With signs of prior trauma (laceration right chest, abrasion under chin, fading ecchymosis inferior to left scapula, concern for trauma to chest wall causing pain. He alsohas a pleural rub but I did not detect a pleural effusion on percussion. He is not in extremis and his vitals are normal. Will check chest x-ray today or first thing tomorrow. Depending on result, may need referral to ED.Ibuprofen OTC 400-600 mg every 8 hours PRN pain with food. Cameron says it is ok to speak with his brother, Jarrod, by phone with the result of the chest xray. - XR Chest 2 Views; Future No future appointments. documented in this encounter Plan of Treatment Not on file documented as of this encounter Procedures Procedure Name Priority Date/Time Associated Diagnosis Comments XR CHEST 2 VIEWS STAT 07/13/2025 5:58 PM EDT Left-sided chest wall pain documented in this encounter Results * XR Chest 2 Views (07/13/2025 5:58 PM EDT) Anatomical Region Laterality Modality Chest Radiographic Maude ging 07/13/2025 5:58 PM EDT Narrative 07/13/2025 5:59 PM EDT [place] [address] XRay Report Signed Patient: Cameron Mays MR#: [id number] : 1955 Acct:[id number] Age/Sex: 70 / M ADM Date: 07/13/25 Loc: HO.XRAY Attending Dr: Velma Beaulieu MD Ordering Physician: Velma Beaulieu MD Date of Service: 07/13/25 Procedure(s): XR chest 2V Accession Number(s): [id number] cc: Beronica Morales MD; Velma Beaulieu MD Reason for Exam: left sided chest wall pain CLINICAL HISTORY: left sided chest wall pain --- Additional Notes or Special Instructions: wo Chest Radiographs, 2 views Comparison: None available Findings: No cardiomegaly. Normal mediastinal contours. No pneumothorax. No opacity. No pleural effusion. Normal upper abdomen. No acute fracture. Impression: No acute findings. This document has been electronically signed by: Isabelle Lisa MD on 07/13/2025 17:58:49 Dictated By: Isabelle Anderson MD Signed By: <Electronically signed by Isabelle Anderson MD in OV> 07/13/251758 DD/ 57 TD/TT: 07/13/251757 Fish Processor: Procedure Note Donotuseinterpreter, Image - 07/13/[address] [address] XRay Report Signed Patient: Reinaldo Mays#: [id number] : 7Acct:[id number] Age/Sex: 70 / MADM Date: 07/13/25 Loc: HO.ALDOAY Attending Dr: Velma Beaulieu MD Ordering Physician: Velma Beaulieu MD Date of Service: 07/13/25 Procedure(s): XR chest 2V Accession Number(s): [id number] cc: Beronica Morales MD; Velma Beaulieu MD Reason for Exam: left sided chest wall pain CLINICAL HISTORY: left sided chest wall pain --- Additional Notes orSpecial Instructions: wo Chest Radiographs, 2 views Comparison: None available Findings: No cardiomegaly. Normal mediastinal contours. No pneumothorax. No opacity. No pleural effusion. Normal upper abdomen. No acute fracture. Impression: No acute findings. This document has been electronically signed by: Isaeblle Lisa MD on 07/13/2025 17:58:49 Dictated By: Isabelle Anderson MD Signed By: <Electronically signed by Isabelle Anderson MD in OV> 07/13/251758 DD/ 57 TD/TT: 07/13/251757 Fish Processor: Velma Beaulieu MD IMG XR PROCEDURES Final Resul t documented in this encounter Visit Diagnoses Diagnosis Left-sided chest wall pain- Primary Painful respiration documented in this encounter Additional Health Concerns Assessment Noted Time PHQ-9 Depression Total Score: 0 04/27/20 25 2:33 PM EDT documented as of this encounter Care Teams Business Department Chair Relationship Specialty Start Date End Date Beronica Morales MD [address] [place] [phone] PCP - General Internal Medicine 09/28/18 documented as of this encounter
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
--- OUTSIDE RECORDS SUMMARY | 2025-07-13 19:46 | XMS_ITS | Encounter Summary ---
Author Organization [employer] Address [address] [place] [address] 7 [place] [address] Care Team Providers Care Elementary Esl Teacher Name Role Phone Beronica Morales MD Primary Care Provider +1- [phone] Encounter Details Date Type Department Care Team (Latest Contact Info) Description 02/26/2022 Abstract [facility] CONVERSIONS Dental, Provider, DDS Social History Tobacco [...] on filedocumented in this encounter Care Teams Elementary Esl Teacher Relationship Specialty Start Date End Date Beronica Morales MD [address] [facility] [place] [address] PCP - General Internal Medicine 09/28/18 documented as of this encounter
--- OUTSIDE RECORDS SUMMARY | 2025-07-13 19:46 | XMS_ITS | Encounter Summary ---
Author Organization [employer] Address [address] [facility] 7t [place] [address] Care Team Providers Care Charger Operator Helper Name Role Phone Beronica Morales MD Primary Care Provider +1- [phone] Encounter Details Date Type Department Care Team ([facility] Contact Info) Description 09/12/2024 Orders Only [facility] [address] [place], [place] [phone] Beronica Morales MD [address] [place], [place] [phone] Social History Tobacco Use Types Packs/Day Years [...] documented as of this encounter Care Teams Charger Operator Helper Relationship Specialty Start Date End Date Beronica Morales MD [address] [place] [phone] PCP - General Internal Medicine 09/28/18 documented as of this encounter
--- OUTSIDE RECORDS SUMMARY | 2025-07-13 19:46 | XMS_ITS | Encounter Summary ---
Author Organization [employer] Address [address] [facility] [address]t [place] [address] Care Team Providers Care Kennel Hand Name Role Phone Beronica Morales MD Primary Care Provider +1 [phone] Encounter Details Date Type Department Care Team (Latest Contact Info) Description 07/13/2025 Travel Social History Tobacco Use Types Packs/Day Years [...] documented as of this encounter Care Teams Kennel Hand Relationship Specialty Start Date End Date Beronica Morales MD [address] [place] [phone] PCP - General Internal Medicine 09/28/18 documented as of this encounter
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
--- OUTSIDE RECORDS SUMMARY | 2025-07-13 19:46 | XMS_ITS | Clinical Summary ---
Author Organization [facility] Address [address] [address] Phone Care Team Providers Care Ict Support Technicians Name Role Phone Beronica Morales MD Primary [...] VACCINE (#1) 2025 COVID-19 VACCINE (1 - 2024-2 6 season) 2025 RSV VACCINE (1 - 1-dose [...] Medical Devices Not on file Insurance , [facility] PRISCILA HERNANDEZ [id number] [facility] [employer] PRISCILA HERNANDEZ [id number] [facility] [address] [place] [address] [place] [address] C3 ACO [facility] C3 ACO [facility] C3 ACO [facility] C3 ACO [facility] C3 ACO [facility] C3 ACO [facility] C3 ACO Care Teams Ict Support Technicians Relationship Specialty Start Date End Date Beronica Morales MD PCP - General Internal Medicine 09/07/21 Additional Source Comments The information contained in this document represents components of the legal health record. It is not the complete legal health record.[facility]
--- OUTSIDE RECORDS SUMMARY | 2025-07-13 19:46 | XMS_ITS | Encounter Summary ---
Author Organization [employer] Address [address] [facility] 7t [place] [address] Care Team Providers Care Medical Assistant Name Role Phone Beronica Morales MD Primary Care Provider [phone]- [phone] Encounter Details Date Type Department Care Team (Latest Contact Info) Description 05/08/2025 Results Follow-Up [facility] CHC MED & PEDS [address] [place], [place] [phone] Beronica Morales MD 505 [place] [address] CBC auto differential, Comprehensive Metabolic Panel, Lipid [...] documented as of this encounter Care Teams Medical Assistant Relationship Specialty Start Date End Date Beronica Morales MD [address] [place] [address] PCP - General Internal Medicine 09/28/18 documented as of this encounter
--- OUTSIDE RECORDS SUMMARY | 2025-07-13 19:46 | XMS_ITS | Clinical Summary ---
Author Organization [facility] Address [address] [place] [address] Phone Care Team Providers Care Shelf Filler Name Role Phone Physician, Pcp Unknown Primary [...] - [place] [employer] MEDICARE Care Teams Shelf Filler Relationship Specialty Start Date End Date Physician, Pcp Unknown PCP - General 12/19/24
--- OUTSIDE RECORDS SUMMARY | 2025-07-13 19:46 | XMS_ITS | Encounter Summary ---
Author Organization [employer] Address [address] [place] [address] 7 [place] [address] Care Team Providers Care Holter Scanning Technician Name Role Phone Beronica Morales MD Primary Care Provider +1- [phone] Reason for Visit * Reason Onset Date Comments Nurse Triage 07/13/2025 Encounter Details Date Type Department Care Team ([facility] Contact Info) Description 07/13/2025 Telephone [facility] CHC MED & PEDS 505 [place], [place] [phone] Beronica Morales MD 505 [place] [address] Nurse Triage Social History Tobacco Use Types Packs/Day Years [...] encounter Miscellaneous Notes * Telephone Encounter - Kristel Ramirez RN - 07/13/2025 2:48 PM EDT TC placed to pt for triage. Pt reports they are not having abdominal pain. Pt reports left sided rib cage pain x 1 week. Pt denies chest pain, SOB, blurred vision, headache, dizziness, cough. Pt reports the pain is constant. Pt reports any movement causes pain and discomfort. Pt states they need towalk slowly to try to manage the discomfort. Pt pre-booked in [facility] for 4:00 PM today due to transportation. Pt agreeable to appointment at [facility] at 4:00 PM and denies questions at this time. Protocol Used: No Protocol Available (Adult) Protocol-Based Disposition: See in Office or Video Visit Today Video visit offer not recorded Positive Triage Questions: * Nursing judgment * Patient wants to be seen * All higher-acuity triage questions were negative Care Advice Discussed: * Reasons To Call Back - New symptoms develop - You become worse * Telephone Encounter - Roger Gonzales - 07/13/2025 2:36 PM EDT Symptom: Abdominal Pain - Male Outcome: Talk to a nurse or provider within 15 minutes Reason: Severe pain now The caller accepted this outcome. Contact pt at [phone] documented in this encounter Plan of Treatment Not on file documented as of this encounter Visit Diagnoses Not on filedocumented in this encounter Additional Health Concerns Assessment Noted Time PHQ-9 Depression Total Score: 0 04/27/20 25 2:33 PM EDT documented as of this encounter Care Teams Holter Scanning Technician Relationship Specialty Start Date End Date Beronica Morales MD [address] [place] [address] PCP - General Internal Medicine 09/28/18 documented as of this encounter
--- OUTSIDE RECORDS SUMMARY | 2025-07-13 19:46 | XMS_ITS | Encounter Summary ---
Author Organization [employer] Address [address] [facility] 7t [place] [address] Care Team Providers Care Decay Control Operator Name Role Phone Beronica Morales MD Primary Care Provider +1- [phone] Encounter Details Date Type Department Care Team ([facility] Contact Info) Description 02/23/2024 Orders Only [facility] CHC MED & PEDS [address] [place], [place] [phone] Beronica Morales MD 505 [place], [place] [phone] Low vitamin D level (Primary Dx) Social [...] documented as of this encounter Care Teams Decay Control Operator Relationship Specialty Start Date End Date Beronica Morales MD [address] [place] [address] PCP - General Internal Medicine 09/28/18 documented as of this encounter
--- OUTSIDE RECORDS SUMMARY | 2025-07-13 19:46 | XMS_ITS | Encounter Summary ---
Author Organization [employer] Address [address] [place] [address] 7 [place] [address] Care Team Providers Care Canvas Worker Apprentice Name Role Phone Beronica Morales MD Primary Care Provider +1- [phone] Encounter Details Date Type Department Care Team (Latest Contact Info) Description 11/26/2020 Abstract [facility] CONVERSIONS Dental, Provider, DDS Social History [...] on filedocumented in this encounter Care Teams Canvas Worker Apprentice Relationship Specialty Start Date End Date Beronica Morales MD [address] [facility] [place] [address] PCP - General Internal Medicine 09/28/18 documented as of this encounter
--- OUTSIDE RECORDS SUMMARY | 2025-07-13 19:46 | XMS_ITS | Encounter Summary ---
Author Organization [employer] Address [address] [place] [address] 7 [place] [address] Care Team Providers Care Ranch Hand Name Role Phone Beronica Morales MD Primary Care Provider +1- [phone] Encounter Details Date Type Department Care Team (Latest Contact Info) Description 10/22/2018 Abstract [facility] CONVERSIONS Dental, Provider, DDS Social History Tobacco [...] on filedocumented in this encounter Care Teams Ranch Hand Relationship Specialty Start Date End Date Beronica Morales MD [address] [facility] [place] [address] PCP - General Internal Medicine 09/28/18 documented as of this encounter
== END 2025-07-13 16:50 | disposition home or self-care (01) ==
LOC: HO.XRAY 16:49
PROVIDERS: PCP Internal Medicine; Visit Provider Internal Medicine
DX: R07.89 Other chest pain (principal)
CPT/HCPCS: 71046

== ENCOUNTER → 2025-07-13 16:54 | Outpatient (BNV) | payer MEDICARE, SELFPAY | PROVIDERS: PCP Internal Medicine; Visit Provider Radiology Diagnostic Radiology | DX: R07.89 Other chest pain (principal) | CPT/HCPCS: 71046 ==

== ENCOUNTER 2025-09-18 11:07 | Outpatient (AMB) | payer MEDICARE, SELFPAY ==
[2025-09-18 11:10] VITALS: BP 120/62; PULSE 85; BMI 20.8
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
--- OUTSIDE RECORDS SUMMARY | 2025-09-18 14:07 | XMS_ITS | Clinical Summary ---
Author Organization [employer] Address [address] [facility] [address] [place] [address] Care Team Providers Care Soaker Meat Name Role Phone Beronica Morales MD Primary Care Provider +1- [phone] Allergies No known active allergies Medications triamcinolone (Kenalog) 0.1 % ointmentIndicatio ns:History of nummular eczema Apply topically 2 times daily. 30 g 3 Active ergocalciferol (Vitamin D2) 1.25 MG (57541 UT) capsuleIndication s:Low vitamin D level Take [...] or moderate pain. 60 tablet 5 Active Nutritional Supplements (Ensure)Indicatio ns:Weight loss, unintentional,Onesimo lure to thrive in adult 1 can 2 times a day 237 mL 12 5 Active Active Problems Problem Noted Date Diagnosed Date Unspecified abnormal involuntary movements 07/14 Assessment & Plan (07/14/2024 11:44 PM EDT): Patient w/o any specific neurological symptoms on gross examination. Persistent symptoms, EEG w/o signs of seizures, will send labs and imaging. Will refer to neurology. Recommended f.up with PCP. Future Appointments Date Time Provider Department Center 08/18/2024 11:15 AM Beronica Morales MD [facility] MED [facility] Hypertensive disorder 12/23/2021 Strain of left biceps 03/11/2018 Resolved Problems Problem Noted Date Diagnosed Date Resolved Date Blood in urine 07/08/2017 07/14/2024 Encounters Date Type Department Care Team Description 09/11/2025 Telephone [facility] MEDICINE [address] [place] [address] Beronica Morales MD Referral 08/15/2025 Telephone [facility] MED [facility] PEDS [address] [place] [address] Beronica Morales MD Appointment Confirmation 08/11/2025 3:30 PM EST Office Visit [facility] [address] [place] [address] Beronica Morales MD Complex partial seizure (CMS/HCC) ([facility]) (Primary Dx); Weight loss, unintentional; Failure to thrive in adult 08/11/2025 Travel 08/10/2025 Telephone [facility] [address] [place] [address] Beronica Morales MD Chart Prep 07/14/2025 2:00 PM EDT Office Visit [facility] WALK-IN [address] [address] Crystal Silveira NP Left-sided chest wall pain (Primary Dx); Pleural rub; Seizure disorder (CMS/HCC) (HCC) 07/14/2025 Telephone [facility] MEDICINE [address] [place] [address] Beronica Morales MD 07/14/2025 Travel 07/13/2025 4:00 PM EDT [facility] [address] [address] Velma Beaulieu MD Left-sided chest wall pain (Primary Dx) 07/13/2025 Results Follow-Up [facility] [address] [place] [address] Beronica Morales MD XR Chest 2 Views 07/13/2025 Travel 07/13/2025 Telephone [facility] MED & PEDS [address] [place] [address] Beronica Morales MD Nurse Triage from Last 3 Months Immunizations Immunization Administration [...] Sign Reading Time Taken Comments Blood Pressure 113/70 08/11/2025 3:31 PM EST Pulse 89 08/11/2025 3:31 PM EST Temperature 36.5 C (97.7 F) 08/11/2025 3:31 PM EST Respiratory Rate 20 08/11/2025 3:31 PM EST Oxygen Saturation 97% 08/11/2025 3:31 PM EST Inhaled Oxygen Concentration - - Weight 46.3 kg (102 lb) 08/11/2025 3:31 PM EST Height 160 cm (5' 3 ) 08/11/2025 3:31 PM EST Body Mass Index 18.07 08/11/2025 3:31 PM EST Plan of Treatment Upcoming Encounters Date Type Department Care Team (Late st Contact Info) Description 09/25/2025 8:00 AM EST Office Visit [facility] ADULT DENTAL [address] [place] [address] Bg Morales Health Maintenance Due Date Last Done Comments CT Colonography 1955 Colonoscopy 1955 FIT 1955 Sigmoidoscopy 1955 Zoster Vaccines (1 of 2) 2007 FOBT 03/15/2025 03/15/2024 COVID-19 Vaccine (2 - season) 2025 02/23/2024 Influenza Vaccine (#1) 2025 DTaP/Tdap/Td Vaccines (2 - Td or Tdap) 12/23/2025 12/24/2015 Alcohol/Substance Use Screening 04/27/2026 04/27/2025 Depression Screening 04/27/2026 04/27/2025, 04/27/20 25 SDOH Screening 04/27/2026 04/27/2025 Tobacco Screening 07/14/2026 07/14/2025 Colorectal Cancer Screening 03/15/2027 FIT DNA/Cologuard 03/15/2027 [...] 5:58 PM EDT Left-sided chest wall pain LIPID PANEL, STANDARD Routine 05/05/2025 11:32 AM EDT Primary hypertension Annual physical exam LAB COLOGUARD COLON CANCER SCREEN Routine 03/15/2024 [...] PM EDT Narrative 07/13/2025 5:59 PM EDT [address] [address] XRay Report Signed Patient: Cameron Mays MR#: [id number] : 1955 Acct:[id number] Age/Sex: 70 / M ADM Date: 07/13/25 Loc: [facility] Attending Dr: Velma Beaulieu MD Ordering Physician: Velma Beaulieu MD Date of Service: 07/13/25 Procedure(s): XR chest 2V Accession Number(s): [id number] cc: Beronica Morales MD; Velma Beaulieu MD [...] in OV> 07/13/251758 DD/ 57 TD/TT: 07/13/251757 Hand Packager: Procedure Note Donotuseinterpreter, Image - 07/13/2025 [place] [address] XRay Report Signed Patient: Reinaldo Mays#: [id number] : 1955cct:[id number] Age/Sex: 70 / MADM Date: 07/13/25 Loc: [facility] Attending Dr: Velma Beaulieu MD Ordering Physician: Velma Beaulieu MD Date of Service: 07/13/25 Procedure(s): XR chest 2V Accession Number(s): [id number] cc: Beronica Morales MD; Velma Beaulieu MD [...] in OV> 07/13/251758 DD/ 57 TD/TT: 07/13/251757 Hand Packager: us Velma Beaulieu MD IMG XR PROCEDURES Final Resul t * (ABNORMAL) Lipid Panel, Standard (05/05/2025 11:32 AM EDT) Triglycerides 79 <150 mg/dL [facility] Comment:Desirable Triglyceri de: less than 150 mg/dLBorderline High Triglyceride 150-199 mg/dLHigh Triglyceride: 200-499 mg/dLVery High Triglyceride: greater than or equal to 5OO mg/dL Cholesterol 182 <200 mg/dL [facility] Comment:Desirable Cholestero l: less than 200 mg/dLBorderline High Cholesterol: 200-239 mg/dLHigh Cholesterol: greater than 239 mg/dL LDL Cholesterol Calculated 108(H) <100 mg/dL [facility] Comment:Desirable LDL: less than 100 mg/dLNear Optimal/Above Optimal LDL: 110- 129 mg/dLBorderline High LDL: 130-159 mg/dLHigh LDL: 160-189 mg/dLVery High LDL: greater than or equal to 190 mg/dL HDL Cholesterol 59 >40 mg/dL [facility] Comment:Desirable HDL: great er than 40 mg/dL Note: This HDL assay may give artificially low results in patients with liver disease. Blood Venous blood specimen / Unknown 05/05/2025 11:32 AM EDT 05/05/2025 2:34 PM EDT us Beronica Morales MD LAB BLOOD ORDERABLES Final Result [facility] [address] [place] [address] [phone] * Cologuard?? colon cancer screening (03/15/2024 11:20 AM EDT) Cologuard Result Negative Negative 03/23/20 6:47 PM EDT [facility] (CLIA #:[id number]) Comment: NEGATIVE TEST RESULT. A negative Cologuard [...] (Che Soler al, N Engl J Med 2014;370(14):3003-8913) The normal value (reference range) for this assay is negative. COLOGUARD RE-SCREENING RECOMMENDATION: Periodic colorectal cancer screening is an important part of preventive healthcare for asymptomatic individuals at average risk for colorectal cancer. Following a negative Cologuard result, the [place] Cancer Society and U.S. Multi-Society Task Force screening guidelines recommend a Cologuard re-screening interval of 3 years. References: [place] Cancer Society Guideline for Colorectal Cancer Screening: https://www.cancer.org/cancer/tfirz-jwwadk-idwnrb/kdewbepki-pokrffsxv-vfwgnae/ac s-rec ommendations.html.; Sukhdev DK, Severino CR, Stephanie MartK, Colorectal Cancer Screening: Recommendations for Physicians and Patients from the U.S. Multi-Society Task Force on Colorectal Cancer Screening , Am J Gastroenterology 2017; 112:0284-4763. TEST DESCRIPTION: Composite algorithmic analysis of stool [...] Rico et al, N Engl J Med 2014;370(14):5193-7950.) Cologuard may produce a false negative or false positive result (no colorectal cancer or precancerous polyp present at colonoscopy follow up). A negative Cologuard test result does not guarantee the absence of CRC or advanced adenoma (pre-cancer). The current Cologuard screening interval is every 3 years. ([place] Cancer Society and U.S. Multi-Society Task Force). Cologuard performance data in a 10,000 patient pivotal study using colonoscopy as the reference method can be accessed at the following location: www.[employer]/results. Additional description of the Cologuard test process, warnings and precautions can be found at www.[employer]. Stool specimen (specimen) Rectal contents / Unknown 03/15/2024 11:20 AM EDT 03/17/2024 10:46 AM EDT Beronica Morales MD LAB MOLECULAR DIAGNOSTICS O RDERABLES Final Result [facility] (CLIA #:[id number]) [place] [address], * Hepatitis C Antibody with Reflex to HCV, RNA, Quantitative, Real-Time PCR (02/23/2024 3:37 PM EDT) Hepatitis C Antibody Nonreactive Nonreactive [facility] Comment:Antibodies to HCV no t detected; does not exclude early acuteHCV infection. Blood Venous blood specimen / Unknown 02/23/2024 3:37 PM EDT 02/23/2024 5:59 PM EDT Beronica Morales MD LAB BLOOD ORDERABLES Final Result [facility] [address] [place] [address] [phone] from Last 3 Months or Most Recently Relevant to Health Maintenance Insurance [facility] MEDICARE ADVANTAGE [facility] [id number] Care Teams Soaker Meat Relationship Specialty Start Date End Date Beronica Morales MD [address] [place] [address] PRISCILA Hernandez PCP - General Internal Medicine 09/28/18
--- OUTSIDE RECORDS SUMMARY | 2025-09-18 14:07 | XMS_ITS | Clinical Summary ---
Author Organization [facility] Address [address] [address] Phone Care Team Providers Care Skidder Name Role Phone Beronica Morales MD Primary [...] Medical Devices Not on file Insurance , [facility] PRISCILA HERNANDEZ [id number] [facility] [employer] PRISCILA HERNANDEZ [id number] [facility] [address] [place] [address] [address] C[employer] [facility] C3 ACO [facility] C3 ACO [facility] C3 ACO [facility] C3 ACO [facility] C3 ACO [facility] C3 ACO Care Teams Skidder Relationship Specialty Start Date End Date Beronica Morales MD PCP - General Internal Medicine 09/07/21 Additional Source Comments The information contained in this document represents components of the legal health record. It is not the complete legal health record.[facility]
--- OUTSIDE RECORDS SUMMARY | 2025-09-18 14:07 | XMS_ITS | Encounter Summary ---
Author Organization [employer] Address [address] [facility] 7t [place] [address] Care Team Providers Care Employment Programs Analyst Name Role Phone Beronica Morales MD Primary Care Provider +1 [phone] Encounter Details Date Type Department Care Team ([facility] st Contact Info) Description 02/23/2024 Orders Only [facility] MED & PEDS [address] [place], [place] [phone] Beronica Morales MD [address] [place], [place] [phone] Low vitamin D level (Primary Dx) Social [...] as of this encounter Plan of Treatment Upcoming Encounters Date Type Department Care Team (Late st Contact Info) Description 09/25/2025 8:00 AM EST Office Visit [facility] ADULT DENTAL [address] [place] [address] Bg Morales documented as of this encounter Visit Diagnoses Diagnosis Low vitamin D level- Primary documented in this encounter Additional Health Concerns Assessment Noted Time PHQ-9 Depression Total Score: 0 02/23/20 24 3:53 PM EDT documented as of this encounter Care Teams Employment Programs Analyst Relationship Specialty Start Date End Date Beronica Morales MD [address] [place] [address] PCP - General Internal Medicine 09/28/18 documented as of this encounter
--- OUTSIDE RECORDS SUMMARY | 2025-09-18 14:08 | XMS_ITS | Encounter Summary ---
Author Organization [employer] Address [address] [place] [address] [address] [place] [address] Care Team Providers Care Systems Qa Analyst Name Role Phone Beronica Morales MD Primary Care Provider +1- [phone] Encounter Details Date Type Department Care Team (Latest Contact Info) Description 10/22/2018 Abstract [facility] CONVERSIONS Dental, Provider, DDS Social History [...] Upcoming Encounters Date Type Department Care Team ( st Contact Info) Description 09/25/2025 8:00 AM EST Office Visit [facility] ADULT D[facility]AL [address] [place] [address] Bg Morales documented as of this encounter Visit Diagnoses Not on filedocumented in this encounter Care Teams Systems Qa Analyst Relationship Specialty Start Date End Date Beronica Morales MD [address] [place] [address] PCP - General Internal Medicine 09/28/18 documented as of this encounter
--- OUTSIDE RECORDS SUMMARY | 2025-09-18 14:08 | XMS_ITS | Clinical Summary ---
Author Organization [facility] Address [address] [place] [address] Phone Care Team Providers Care Services Tech Name Role Phone Physician, Pcp Unknown Primary [...] - [place] [employer] MEDICARE Care Teams Services Tech Relationship Specialty Start Date End Date Physician, Pcp Unknown PCP - General 12/19/24
--- OUTSIDE RECORDS SUMMARY | 2025-09-18 14:08 | XMS_ITS | Encounter Summary ---
Author Organization [employer] Address [address] [facility] 7[address] [place] [address] Care Team Providers Care High Man Name Role Phone Beronica Morales MD Primary Care Provider +1 [phone] Encounter Details Date Type Department Care Team ([facility] Contact Info) Description 09/12/2024 Orders Only [facility] MED & PEDS [address] [place], [place] [phone] Beronica Morales MD [address] [place], [place] [phone] Social History Tobacco Use Types Packs/Day Years [...] Description 09/25/2025 8:00 AM EST Office Visit [facility] ADULT DENTAL [address] [place] [address] Bg Morales documented as of this encounter Visit Diagnoses Not on filedocumented in this encounter Additional Health Concerns Assessment Noted Time PHQ-9 Depression Total Score: 0 02/23/20 24 3:53 PM EDT documented as of this encounter Care Teams High Man Relationship Specialty Start Date End Date Beronica Morales MD [address] [place] [address] PCP - General Internal Medicine 09/28/18 documented as of this encounter
--- OUTSIDE RECORDS SUMMARY | 2025-09-18 14:08 | XMS_ITS | Encounter Summary ---
Author Organization [employer] Address [address] [place] [address] [address] [place] [address] Care Team Providers Care Paver Name Role Phone Beronica Morales MD Primary Care Provider +1- [phone] Encounter Details Date Type Department Care Team (Latest Contact Info) Description 11/26/2020 Abstract [facility] CONVERSIONS Dental, Provider, DDS Social [...] Description 09/25/2025 8:00 AM EST Office Visit [facility] ADULT DENTAL [address] [place] [address] Bg Morales documented as of this encounter Visit Diagnoses Not on filedocumented in this encounter Care Teams Paver Relationship Specialty Start Date End Date Beronica Morales MD [address] [place] [address] PCP - General Internal Medicine 09/28/18 documented as of this encounter
--- OUTSIDE RECORDS SUMMARY | 2025-09-18 14:08 | XMS_ITS | Encounter Summary ---
Author Organization [employer] Address [address] [place] [address] [address] [place] [address] Care Team Providers Care Livestock Farm Manager Name Role Phone Beronica Morales MD Primary Care Provider +1- [phone] Encounter Details Date Type Department Care Team (Latest Contact Info) Description 02/26/2022 Abstract [facility] CONVERSIONS Dental, Provider, DDS Social History Tobacco [...] 09/25/2025 8:00 AM EST Office Visit [facility] ADULT D[facility]AL [address] [place] [address] Bg Morales documented as of this encounter Visit Diagnoses Not on filedocumented in this encounter Care Teams Livestock Farm Manager Relationship Specialty Start Date End Date Beronica Morales MD [address] [place] [address] PCP - General Internal Medicine 09/28/18 documented as of this encounter
== END 2025-09-18 11:30 | disposition home or self-care (01) ==
LOC: HO.HCS 11:08
PROVIDERS: PCP Internal Medicine; Visit Provider Internal Medicine
DX: I49.8 Other specified cardiac arrhythmias (principal); I45.10 Unspecified right bundle-branch block; I10 Essential (primary) hypertension
CPT/HCPCS: 93010; 99214; G2211

== ENCOUNTER → 2025-09-18 11:07 | Outpatient (BNVA) | payer MEDICARE, SELFPAY | PROVIDERS: PCP Internal Medicine; Visit Provider Internal Medicine | DX: I49.8 Other specified cardiac arrhythmias (principal); I45.10 Unspecified right bundle-branch block; I10 Essential (primary) hypertension | CPT/HCPCS: 93005; 99212 ==